=== PATIENT | female | born 1995 | race Caucasian/White ===

== ENCOUNTER 2017-01-13 23:33 | Emergency (ER) | payer BC ==
[2017-01-14] MEDS ORDERED: LIDOCAINE 2% VISCOUS 15 ML UDCUP ONE (01:23)
[2017-01-14] MEDS ORDERED: MAG HYDROX/AL HYDROX/SIMETH 30 ML UDCUP ONE (01:23)
[2017-01-14] MEDS ORDERED: LIDOCAINE 2% VISCOUS 15 ML UDCUP PO ONE (01:25)
[2017-01-14] MEDS ORDERED: MAG HYDROX/AL HYDROX/SIMETH 30 ML UDCUP PO ONE (01:26)
[2017-01-14] MEDS ORDERED: valACYclovir 500 MG TAB PO ONE (01:28)
--- NOTE | 2017-01-14 01:30 | EDPHY ---
H & P Stated Complaint: tongue red/swelling x3-4 days Time Seen by Provider: 01/14/17 00:50 HPI/ROS: Chief Complaint: Tongue pain HPI: 21-year-old woman who has lesions on the tip of her tongue the last several days. Patient states began as chest pain on her tongue that she noticed some developing bumps and sores. Does not have a history of the same. Did have some sore throat but that is gotten better. Has not take any medications for this. States she is sexually active with 1 partner. Denies any other rashes or lesions. No history of sexually transmitted disease in the past. No fevers or chills. No nausea or vomiting. ROS: 10 point Review of Systems is negative except as noted in the HPI. PMH: Denies Social History: No smoking, occasional alcohol, no recreational drug use Family History: non-contributory Physical Exam: Gen: Awake, Alert, No Distress HEENT: Ears are normal bilaterally Nose: no rhinorrhea Eyes: PERRLA, EOMI Mouth: Moist mucosa there are vesicular lesions with mild yellowish plaque on the anterior portion of her tongue. These are on an erythematous base. There are no other intraoral lesions noted. Normal oropharynx. Neck: Supple, no JVD - Personal History LMP (Females 10-55): Over 28 Days Ago Current Tetanus/Diphtheria Vaccine: Yes Current Tetanus Diphtheria and Acellular Pertussis (TDAP): Yes - Medical/Surgical History Hx Asthma: No Hx Chronic Respiratory Disease: No Hx Diabetes: No Hx Cardiac Disease: No Hx Renal Disease: No Hx Cirrhosis: No Hx Alcoholism: No Hx HIV/AIDS: No Hx Splenectomy or Spleen Trauma: No Other PMH: denies - Social History Smoking Status: Never smoked Constitutional: Initial Vital Signs Temperature (C) 36.8 C 01/13/17 23:35 Heart Rate 82 01/13/17 23:35 Respiratory Rate 14 01/13/17 23:35 Blood Pressure 120/80 01/13/17 23:35 O2 Sat (%) 96 01/13/17 23:35 O2 Delivery Mode Room Air Allergies/Adverse Reactions: No Known Allergies Allergy (Unverified 01/13/17 23:37) Home Medications: Medication Instructions Recorded Bcp 01/13/17 Valacyclovir HCl [Valtrex] 1,000 mg PO BID #14 tab 01/14/17 Medical Decision Making ED Course/Re-evaluation: Patient has new tongue lesions which were preceded with pain concerning for the possibility of herpes. PCR swab has been sent. I am empirically starting her on Valtrex. She will call back to get final confirmation on cultures. She denies any vaginal lesions or discharge. Pelvic exam is deferred at this time. - Data Points Laboratory Results: 01/14/17 01:20 HSV I DNA PCR Pending HSV II DNA PCR Pending Medications Given: Discontinued Medications Al Hydroxide/Mg Hydroxide (Maalox Susp) 30 ml PO ONCE ONE Stop: 01/14/17 01:27 Last Admin: 01/14/17 01:54 Dose: 30 ml Lidocaine (Lidocaine 2% Viscous) 5 ml PO EDNOW ONE Stop: 01/14/17 01:26 Last Admin: 01/14/17 01:54 Dose: 5 ml Valacyclovir HCl (Valtrex) 1,000 mg PO EDNOW ONE Stop: 01/14/17 01:29 Last Admin: 01/14/17 01:54 Dose: 1,000 mg Departure - Departure Disposition: Home, Routine, Self-Care Clinical Impression: Tongue lesion Condition: Good Instructions: Oral Herpes Simplex Virus Infections (ED) Additional Instructions: Call this hospital in 2 days to check on your culture results. Follow up with primary care physician in 3-4 days for re-evaluation. May use the oral medication 1 mL every hour as needed for pain. Take her full course of antiviral medication. Referrals: WESLEY RUSHING [Other] - As per Instructions Prescriptions: Valacyclovir HCl [Valtrex] 1,000 mg PO BID #14 tab
[2017-01-14 02:03] VITALS: BP 115/73; PULSE 60; RESP 15; TEMP 98.1; O2SAT 98
[2017-01-15 23:56] LABS: SPECIMEN SOURCE TONGUE
== END 2017-01-14 02:00 | disposition home or self-care (01) ==
DX: K13.70 Unspecified lesions of oral mucosa (principal)
CPT/HCPCS: 87529-90